=== PATIENT | female | born 1970 | race Hispanic/Latino ===

== ENCOUNTER 2018-12-15 08:34 | Emergency (ER) | payer MEDICARE ==
[2018-12-15 09:07] LABS: BASOPHILS % (AUTO) 0.4 % (0.0-5.0); EOSINOPHILS % (AUTO) 1.4 % (0.0-8.0); HEMATOCRIT 37.4 % (36-48); LYMPHOCYTES % (AUTO) 20.6 % (21.0-51.0); MEAN CORPUSCULAR HEMOGLOBIN 35.9 pg (27.0-33.0); MEAN CORPUSCULAR HGB CONC 35.3 g/dL (32.0-36.0); MEAN CORPUSCULAR VOLUME 101.8 fL (79-99); MONOCYTES % (AUTO) 6.7 % (3.0-13.0); NEUTROPHILS % (AUTO) 70.9 % (40.0-77.0); NUCLEATED RED BLOOD CELLS 0.1 % (0.0-0.19); PLATELET COUNT (AUTO) 17 K/uL (130-400); RED BLOOD CELL COUNT(AUTO) 3.67 MIL/uL (4.00-5.50); RED CELL DISTRIBUTION WIDTH 14.4 % (11.0-15.5); WHITE BLOOD COUNT (AUTO) 1.3 K/uL (4.8-10.8)
[2018-12-15 09:15] LABS: CREATININE 1.1 mg/dL (0.5-1.5); POTASSIUM 3.9 mmol/L (3.5-5.1)
[2018-12-15 09:19] LABS: INR 1.54 (0.85-1.15); PARTIAL THROMBOPLASTIN TIME 35.9 SEC (26.3-35.5); PROTHROMBIN TIME 15.9 SEC (9.6-11.6)
[2018-12-15 09:20] LABS: ALBUMIN 2.7 g/dL (3.5-5.0); BILIRUBIN,TOTAL 2.4 mg/dL (0.2-1.0); TOTAL PROTEIN, SERUM 7.2 g/dL (6.0-8.3)
--- NOTE | 2018-12-15 09:27 | NUR ---
PROCEDURE PATIENT SCHEDULED FOR U/S GD LARGE VOLUME PARACENTESIS WITH APLATELET COUNT OF 17. DR Oz ARREDONDO NOTIFIED AND STATED PROCEDURE WILL NOT BE PERFORMED UNTIL PLATELET COUNT CORRECTED ABOVE 50. U/S OF ABDOMEN ORDERED TO EVALUATE ASCITIC VOLUME.
== END 2018-12-15 10:40 | disposition home or self-care (01) ==
LOC: EDH 08:34
DX: K74.60 Unspecified cirrhosis of liver (principal); D69.6 Thrombocytopenia, unspecified
CPT/HCPCS: 36415; 76705; 80053; 85025; 85060; 85610; 85730

== ENCOUNTER 2018-12-17 18:47 | Inpatient (IN) | payer MEDICARE ==
[~2018-12-17] VITALS: Ht 157.5 cm; Wt 91.3 kg
[2018-12-17 19:37] LABS: APPEARANCE,URINE Clear (CLEAR); BILIRUBIN,URINE Moderate (NEGATIVE); GLUCOSE, URINE (UA) TRACE mg/dL (NEGATIVE); KETONES,URINE Negative (NEGATIVE); LEUKOCYTE ESTERASE ,URINE Small (NEGATIVE); NITRATE,URINE Positive (NEGATIVE); OCCULT BLOOD,URINE Moderate (NEGATIVE); PROTEIN,URINE POS 1+ mg/dL (NEGATIVE)
[2018-12-17 20:07] LABS: COLOR,URINE Orange (YELLOW)
[2018-12-17 20:14] LABS: BACTERIA,URINE Few /HPF (None Seen); RBC,URINE None Seen /HPF (0-1); WBC,URINE 0-1 /HPF (0-1)
[2018-12-17 20:15] LABS: MUCUS,URINE Few LPF (None Seen)
[2018-12-17 20:26] LABS: BASOPHILS % (AUTO) 0.2 % (0.0-5.0); EOSINOPHILS % (AUTO) 0.6 % (0.0-8.0); HEMATOCRIT 37.5 % (36-48); LYMPHOCYTES % (AUTO) 3.9 % (21.0-51.0); MEAN CORPUSCULAR HEMOGLOBIN 36.2 pg (27.0-33.0); MEAN CORPUSCULAR HGB CONC 35.3 g/dL (32.0-36.0); MEAN CORPUSCULAR VOLUME 102.6 fL (79-99); MONOCYTES % (AUTO) 4.2 % (3.0-13.0); NEUTROPHILS % (AUTO) 91.1 % (40.0-77.0); NUCLEATED RED BLOOD CELLS 0.1 % (0.0-0.19); PLATELET COUNT (AUTO) 11 K/uL (130-400); RED BLOOD CELL COUNT(AUTO) 3.66 MIL/uL (4.00-5.50); RED CELL DISTRIBUTION WIDTH 14.2 % (11.0-15.5); WHITE BLOOD COUNT (AUTO) 2.7 K/uL (4.8-10.8)
[2018-12-17 20:43] LABS: POTASSIUM 4.1 mmol/L (3.5-5.1)
[2018-12-17 20:48] LABS: ALBUMIN 2.6 g/dL (3.5-5.0); BILIRUBIN,TOTAL 2.8 mg/dL (0.2-1.0); INR 1.64 (0.85-1.15); PARTIAL THROMBOPLASTIN TIME 30.8 SEC (26.3-35.5); PROTHROMBIN TIME 16.9 SEC (9.6-11.6)
[2018-12-17 20:49] LABS: LYMPHOCYTES % (MANUAL) 5 % (22-44); MAN.DIFF COMMENT-IMPRESSION MANUAL DIFFERENTIAL; MONOCYTES % (MANUAL) 4 % (2-9); SEGMENTED NEUTROPHILS % 91 % (40-70)
[2018-12-17 20:50] LABS: PLATELET MORPHOLOGY COMMENT MARKED DECREASE
[2018-12-17] MEDS ORDERED: SODIUM CHLORIDE 0.9% 500ML 500 ML IV ONE (20:56)
[2018-12-17] MEDS ORDERED: MORPHINE SULFATE 4 MG/1ML SYG ONE (22:12)
[2018-12-17] MEDS ORDERED: ONDANSETRON HCL 4 MG/2 ML VIAL ONE (22:12)
[2018-12-17] MEDS ORDERED: MORPHINE SULFATE 2 MG/ML 1ML SYG IV PRN (22:30)
[2018-12-17] MEDS ORDERED: ACETAMINOPHEN 325 MG TAB PO PRN (22:30)
[2018-12-17] MEDS ORDERED: MORPHINE SULFATE 4 MG/1ML SYG IV PRN (22:30)
[2018-12-17] MEDS ORDERED: ONDANSETRON HCL 4 MG/2 ML VIAL IV PRN (22:30)
[2018-12-17] MEDS ORDERED: CEFTRIAXONE SODIUM 1 GM IV SCH (22:30)
[2018-12-17] MEDS ORDERED: LEVOFLOXACIN 500 MG/D5W 100 ML 100 ML IV SCH (23:30)
[2018-12-17] MEDS ORDERED: CEFTRIAXONE SODIUM 1 GM ONE (23:42)
[2018-12-17] MEDS ORDERED: ACETAMINOPHEN 325 MG TAB ONE (23:43)
[2018-12-17] MEDS ORDERED: SODIUM CHLORIDE 0.9% 250 ML IV ONE (23:43)
[2018-12-18 00:15] VITALS: BP 100/39
[2018-12-18] MEDS: SODIUM CHLORIDE 0.9% 1000ML 1,000 ML IV SCH ×2 (01:41→10:14)
[2018-12-18 03:50] VITALS: BP 89/59
[2018-12-18 05:07] LABS: BASOPHILS % (AUTO) 0.1 % (0.0-5.0); EOSINOPHILS % (AUTO) 1.5 % (0.0-8.0); HEMATOCRIT 34.9 % (36-48); MEAN CORPUSCULAR HEMOGLOBIN 35.7 pg (27.0-33.0); MEAN CORPUSCULAR HGB CONC 34.7 g/dL (32.0-36.0); MONOCYTES % (AUTO) 7.8 % (3.0-13.0); NEUTROPHILS % (AUTO) 81.6 % (40.0-77.0); PLATELET COUNT (AUTO) 14 K/uL (130-400); RED BLOOD CELL COUNT(AUTO) 3.38 MIL/uL (4.00-5.50); RED CELL DISTRIBUTION WIDTH 14.5 % (11.0-15.5); WHITE BLOOD COUNT (AUTO) 1.8 K/uL (4.8-10.8)
[2018-12-18 05:19] LABS: ALBUMIN 2.3 g/dL (3.5-5.0); BILIRUBIN,DIRECT 1.4 mg/dL (0.0-0.3); BILIRUBIN,TOTAL 2.5 mg/dL (0.2-1.0); TOTAL PROTEIN, SERUM 6.3 g/dL (6.0-8.3)
[2018-12-18] MEDS ORDERED: METRONIDAZOLE 500MG/100ML BAG 100 ML IV SCH (06:00)
[2018-12-18 08:00] VITALS: BP 91/58
[2018-12-18] MEDS ORDERED: RIFAXIMIN 550 MG TABLET PO SCH (09:00)
[2018-12-18] MEDS ORDERED: LACTULOSE 20 GM/30 ML UDCUP PO SCH ×2 (09:00→11:00)
--- NOTE | 2018-12-18 10:00 | NUR ---
DR. AVI MALIN, CALL BACK RECEIVED WITH ORDERS, ORDERS CARRIED OUT, PENDING RESULTS OF ORDERS TO BE CALLED BACK TO MD.
[2018-12-18 11:25] VITALS: BP 141/79
[2018-12-18] MEDS ORDERED: FOLI0.4T2 PO (12:15)
[2018-12-18] MEDS ORDERED: PANT40TA25 PO (12:15)
[2018-12-18] MEDS ORDERED: CHOL200079 PO (12:15)
[2018-12-18] MEDS ORDERED: RIFA550T PO (12:15)
[2018-12-18] MEDS ORDERED: CYAN250014 PO (12:15)
[2018-12-18] MEDS ORDERED: SPIR100T5 PO (12:15)
[2018-12-18] MEDS ORDERED: QUET50TA55 PO (12:15)
[2018-12-18] MEDS ORDERED: MONT10TA24 PO (12:15)
[2018-12-18] MEDS ORDERED: CALC-1009 PO (12:15)
[2018-12-18] MEDS ORDERED: BIOT300T7 PO (12:15)
[2018-12-18] MEDS ORDERED: TRAZ-187 PO (12:15)
[2018-12-18] MEDS ORDERED: PARO25TA22 PO (12:15)
[2018-12-18] MEDS ORDERED: FURO80TA3 PO (12:15)
[2018-12-18] MEDS ORDERED: FERR-82 PO (12:15)
[2018-12-18] MEDS ORDERED: VITA200C75 PO (12:15)
[2018-12-18 16:00] VITALS: BP 120/54
--- NOTE | 2018-12-18 16:30 | NUR ---
DR. SHANIQUA MALIN, PENDING TO SEE PT.
--- NOTE | 2018-12-18 18:15 | NUR ---
INITIAL: Met w pt and spouse this afternoon to discuss dcp. Pt mentions that she lives w her spouse/parents and children. Prior to admission was independent w household ambulation and used a rollator for community distances. Pt states that she is independent w ADLs. She has provider services 4hr/day from [facility]. Pt also has at home a chair and bedside commode. Per pt she feels safe and comfortable to return home at mo. CM to continue to follow and wait for Md recommendations. Addendum: 12/18/18 at 1817 by STEVEN MATUTE Amended: Links added.
--- NOTE | 2018-12-18 20:09 | NUR ---
PT LEFT AMA Pt and spouse agreed to leave AMA, "According to pt they will prefer to walk in to the their primary care provider's office to get the test that needed to be done to avoid the wait" Dr. Patrick Renee called and notified about pt's decision and he does not recommend that due to the pending results of the abdominal ultrasound. Primary care provider Ailin DUMONT, for the hospital was also informed and she stated, she does not recommend discharge due to positive nitrate as indicated in her Urinalysis, and will want to wait for final result of UA, for further recommendation. Pt was provided with all information stated above to make an informed decision, but pt decided to go ahead and leave against medical advice. Pt was provided with the AMA form to sign, Every information was explained to her in details, All questions and concerns addressed.
== END 2018-12-18 18:45 | disposition left against medical advice (07) | DRG 391 ==
LOC: EDH 18:47 → EDHIP 22:24 → 3CH 23:08
PROVIDERS: ADMIT Internal Medicine; ATTEND Internal Medicine
PROC: 30233R1 Transfusion of Nonautologous Platelets into Peripheral Vein, Percutaneous Approach (ICD-10-PCS; principal; 2018-12-17)
DX: K52.9 Noninfective gastroenteritis and colitis, unspecified (principal); G93.41 Metabolic encephalopathy; N39.0 Urinary tract infection, site not specified; K74.60 Unspecified cirrhosis of liver; D69.6 Thrombocytopenia, unspecified; D70.9 Neutropenia, unspecified; E66.9 Obesity, unspecified; M79.7 Fibromyalgia; R50.81 Fever presenting with conditions classified elsewhere; Z68.36 Body mass index [BMI] 36.0-36.9, adult
CPT/HCPCS: 36415; 36430; 76700; 80053; 80061; 80076; 81001; 82140; 83630; 83690; 85025; 85610; 85730; 86900; 86901; 86999; 87046; 87088; 93975; 99291; G0378; J0696; J1956; J2270; J2405; J3490; J7030; J7040; P9034